=== PATIENT | female | born 1945 | race Caucasian/White ===

== ENCOUNTER 2016-07-31 12:47 | Inpatient (IN) | payer MEDICARE, OTHER ==
--- NOTE | 2016-07-31 12:58 | ERPHSYRPT ---
- History of Present Illness Time Seen by Provider: 07/31/16 12:55 Source: EMS Exam Limitations: clinical condition Physician History: 71-year-old white female brought by medics with complaint of seizing for approximately one half hour prior to the arrival of the medics patient was given Versed 2 mg by the medics she arrives she is able to open her eyes she will open her mouth she will move her right hand and squeeze, she does not manager content or move her left hand. Her speech is limited to groaning. Past medical history Small cell lung cancer, feeding tube, depression Past surgical history includes vascular surgery, tubal ligation, varicose vein stripping, cataracts, bilateral foot surgery, feeding tube Timing/Duration: today Severity: moderate Modifying Factors: Improves With: nothing Associated Symptoms: No nausea, No vomiting, No abdominal pain, No shortness of breath, No heartburn, No cough, No chest pain, No fever, No headaches, No loss of appetite, No seizure, No other Allergies/Adverse Reactions: No Known Drug Allergies Allergy (Verified 07/31/16 13:08) Home Medications: Unobtainable [Unobtainable] 07/31/16 [History] Hx Tetanus, Diphtheria Vaccination/Date Given: No Hx Influenza Vaccination/Date Given: No Hx Pneumococcal Vaccination/Date Given: No - Review of Systems Constitutional: No Fever, No Chills Eyes: No Symptoms Ears, Nose, & Throat: No Symptoms Respiratory: No Cough, No Dyspnea Cardiac: No Chest Pain, No Edema, No Syncope Abdominal/Gastrointestinal: No Abdominal Pain, No Nausea, No Vomiting, No Diarrhea Musculoskeletal: No Back Pain, No Neck Pain Skin: No Rash Neurological: Seizure (seizure lasting 1/2 hour at home) Psychological: No Symptoms Endocrine: No Symptoms - Past Medical History Pertinent Past Medical History: Yes Neurological History: No Pertinent History ENT History: Cataracts Cardiac History: No Pertinent History Respiratory History: Lung Cancer Endocrine Medical History: No Pertinent History Musculoskeletal History: Other GI Medical History: No Pertinent History History: No Pertinent History Psycho-Social History: No Pertinent History Female Reproductive Disorders: No Pertinent History Other Medical History: leg tremors. varicose veins. G TUBE PLACED IN 07/2015 DUE TO DECREASED INTAKE - Past Surgical History Past Surgical History: Yes Neuro Surgical History: No Pertinent History Cardiac: Vascular Surgery Respiratory: Other Gastrointestinal: No Pertinent History, Other Genitourinary: No Pertinent History Musculoskeletal: No Pertinent History Female Surgical History: Tubal Ligation Other Surgical History: several varicose vein lasered ,. cvl port-PORT REMOVAL. cataract x2. Bronchoscopy to dx lung cancer. bilateral foot surgery ( big toes). FEEDING TUBE PLACEMENT 07/26 - Social History Smoking Status: Current some day smoker How long have you smoked: 50 Exposure to second hand smoke: No Drug Use: none Patient Lives Alone: No - Nursing Vital Signs Nursing Vital Signs: Initial Vital Signs Temperature 97.0 F Temperature Source Oral Pulse Rate 107 Respiratory Rate 16 Blood Pressure [Right Arm] 123/74 - Physical Exam General Appearance: other (elderly appearing white female she is alert she will move her eyes and her mouth to command squeezes with her right hand) Eye Exam: PERRL/EOMI, eyes nml inspection Ears, Nose, Throat Exam: normal ENT inspection, TMs normal, pharynx normal, moist mucous membranes Neck Exam: normal inspection, non-tender, supple, full range of motion Respiratory Exam: rhonchi (bilateral rhonchi) Cardiovascular Exam: regular rate/rhythm, normal heart sounds, normal peripheral pulses Gastrointestinal/Abdomen Exam: soft, normal bowel sounds, No tenderness, No mass Back Exam: normal inspection, normal range of motion, No CVA tenderness, No vertebral tenderness Extremity Exam: other (patient has full range of motion right hand does not move left hand) Neurologic Exam: alert, cooperative, other (patient is alert and communicates with incomprehensible sounds. Opens mouth to command. 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 left hand) Skin Exam: normal color, warm, dry, No rash SpO2 Interpretation: normal - Course Nursing assessment & vital signs reviewed: Yes EKG Interpreted by Me: RATE (110), Sinus Rhythm, Sinus Tach, NORMAL AXIS, Other (EKG, sinus tachycardia, 110 bpm, normal axis, no acute ST or T wave changes ) Rhythm Strip: Rate Ordered Tests: Active Orders 24 hr Category Date Time Status Accucheck STAT Care 07/31/16 12:50 Active EKG-ER Only STAT Care 07/31/16 12:50 Active IV Insertion STAT Care 07/31/16 12:50 Active IV Insertion-2nd Peripheral STAT Care 07/31/16 13:21 Active Pulse Oximetry (ED) STAT Care 07/31/16 12:50 Active cath [Cath for Specimen-Straight] STAT Care 07/31/16 13:24 Active CHEST 1 VIEW (PORTABLE) Stat Exams 07/31/16 12:50 Completed HEAD WITHOUT CONTRAST [CT] Stat Exams 07/31/16 12:50 Completed BLOOD CULTURE Stat Lab 07/31/16 12:30 Received CBC W DIFF Stat Lab 07/31/16 12:30 Completed CMP Stat Lab 07/31/16 12:30 Completed CULTURE,URINE Stat Lab 07/31/16 13:23 Received PROTIME WITH INR Stat Lab 07/31/16 12:30 Completed PTT Stat Lab 07/31/16 12:30 Completed TROPONIN Q3H Lab 07/31/16 13:00 Completed TROPONIN Q3H Lab 07/31/16 16:00 Ordered TROPONIN Q3H Lab 07/31/16 19:00 Ordered TROPONIN Q3H Lab 07/31/16 22:00 Ordered TROPONIN Q3H Lab 08/01/16 01:00 Ordered UA W/ MICROSCOPIC Stat Lab 07/31/16 13:00 Completed VENOUS BLOOD GAS Urgent Lab 07/31/16 12:30 Completed Respiratory Nebulizer STAT RT 07/31/16 13:27 Completed Medication Summary Generic Name Dose Route Start Last Admin Trade Name Freq PRN Reason Stop Dose Admin Sodium Chloride 1,000 mls @ 50 mls/hr 07/31/16 13:00 07/31/16 13:17 Sodium Chloride 0.9% 1000 Ml IV 08/30/16 12:59 50 mls/hr .Q20H MIKE Administration Ceftriaxone Sodium/Dextrose 1 g in 50 mls @ 100 mls/hr 07/31/16 14:12 14:19 Rocephin 1 Gm-D5w 50 Ml Bag IV 07/31/16 14:41 100 mls/hr STAT STA Administration Discontinued Medications Generic Name Dose Route Start Last Admin Trade Name Freq PRN Reason Stop Dose Admin Albuterol/Ipratropium 3 ml 07/31/16 13:27 07/31/16 13:35 Duoneb 0.5-3 Mg/3 Ml Neb IH 07/31/16 13:28 3 ml STAT ONE Administration Albuterol/Ipratropium Confirm 07/31/16 13:29 Duoneb 0.5-3 Mg/3 Ml Neb Administered 07/31/16 13:30 Dose 3 ml IH .STK-MED ONE Ceftriaxone Sodium/Dextrose Confirm 07/31/16 14:16 Rocephin 1 Gm-D5w 50 Ml Bag Administered 07/31/16 14:17 Dose 1 g in 50 mls @ ud IV .STK-MED ONE Lab/Rad Data: Laboratory Result Diagrams 07/31/16 12:30 07/31/16 12:30 Laboratory Results 07/31/16 07/31/16 07/31/16 Range/Units 13:00 13:00 12:30 WBC (4.0-10.5) K/mm3 RBC (4.1-5.4) M/mm3 Hgb (12.0-16.0) gm/dl Hct (35-47) % MCV (78-100) fl MCH (26-32) pg MCHC (32-36) g/dl RDW (11.5-14.0) % Plt Count (150-450) K/mm3 MPV (6-9.5) fl Gran % (36.0-66.0) % Lymphocytes % (24.0-44.0) % Monocytes % (0.0-12.0) % Eosinophils % (0.00-5.0) % Basophils % (0.0-0.4) % Basophils # (0-0.4) INR 1.16 (0.8-3.0) APTT 31.3 (25.3-37.0) SECONDS VBG pH (7.32-7.42) VBG pCO2 at Pat Temp (42-55) mm/Hg VBG pO2 at Pat Temp (25-40) mm/Hg VBG HCO3 (22-28) meq/L VBG O2 Sat ([place]) (95-100) VBG Base Excess (-2.0-2.0) VBG Hemoglobin VBG Carboxyhemoglobin (0.0-6.9) % T HGB POC Potassium (3.5-5.1) Sodium (136-145) mEq/L Potassium (3.5-5.1) mEq/L Chloride (98-107) mEq/L Carbon Dioxide (21-32) mEq/L Anion Gap (5-15) MEQ/L BUN (9-20) mg/dL Creatinine (0.55-1.30) mg/dl Estimated GFR ML/MIN Glucose (70-110) MG/DL Calcium (8.5-10.1) mg/dL Total Bilirubin (0.2-1.0) mg/dL AST (15-37) U/L ALT (12-78) U/L Alkaline Phosphatase (46-116) U/L Troponin I < 0.017 (0.000-0.056) ng/ml Serum Total Protein (6.4-8.2) gm/dL Albumin (3.4-5.0) g/dL Ur Collection Type CATH Urine Color YELLOW (YELLOW) Urine Appearance SLIGHTLY CLOUDY (CLEAR) Urine pH 5.0 (5-6) Ur Specific [place] 1.020 (1.005-1.025) Urine Protein TRACE (Negative) Urine Ketones NEGATIVE (NEGATIVE) Urine Blood NEGATIVE (0-5) Misbah/ul Urine Nitrite NEGATIVE (NEGATIVE) Urine Bilirubin NEGATIVE (NEGATIVE) Urine Urobilinogen NORMAL (0-1) mg/dL Ur Leukocyte Esterase NEGATIVE (NEGATIVE) Urine Microscopic WBC 0-2 (0-5) /HPF Ur Epithelial Cells RARE (FEW) /HPF Amorphous Crystals MANY (NEGATIVE) /HPF Urine Bacteria FEW (NEGATIVE) /HPF Urine Glucose NEGATIVE (NEGATIVE) mg/dL Specimen Received 07/31/16 1300 07/31/16 07/31/16 07/31/16 Range/Units 12:30 12:30 12:30 WBC 12.0 H (4.0-10.5) K/mm3 RBC 3.50 L (4.1-5.4) M/mm3 Hgb 10.7 L (12.0-16.0) gm/dl Hct 34.3 L (35-47) % MCV 98.0 (78-100) fl MCH 30.5 (26-32) pg MCHC 31.2 L (32-36) g/dl RDW 14.5 H (11.5-14.0) % Plt Count 485 H (150-450) K/mm3 MPV 11.1 H (6-9.5) fl Gran % 76.6 H (36.0-66.0) % Lymphocytes % 18.1 L (24.0-44.0) % Monocytes % 4.2 (0.0-12.0) % Eosinophils % 0.9 (0.00-5.0) % Basophils % 0.2 (0.0-0.4) % Basophils # 0.02 (0-0.4) INR (0.8-3.0) APTT (25.3-37.0) SECONDS VBG pH 7.22 L* (7.32-7.42) VBG pCO2 at Pat Temp 41 L (42-55) mm/Hg VBG pO2 at Pat Temp 119 H (25-40) mm/Hg VBG HCO3 16.8 L* (22-28) meq/L VBG O2 Sat ([place]) 98.7 (95-100) VBG Base Excess -10.3 L (-2.0-2.0) VBG Hemoglobin 11.0 VBG Carboxyhemoglobin 3.8 (0.0-6.9) % T HGB POC Potassium 4.2 (3.5-5.1) Sodium 139 (136-145) mEq/L Potassium 4.2 (3.5-5.1) mEq/L Chloride 100 (98-107) mEq/L Carbon Dioxide 17.5 L (21-32) mEq/L Anion Gap 26.1 H (5-15) MEQ/L BUN 37 H (9-20) mg/dL Creatinine 1.79 H (0.55-1.30) mg/dl Estimated GFR 30 ML/MIN Glucose 302 H (70-110) MG/DL Calcium 10.3 H (8.5-10.1) mg/dL Total Bilirubin 0.30 (0.2-1.0) mg/dL AST 28 (15-37) U/L ALT 11 L (12-78) U/L Alkaline Phosphatase 220 H (46-116) U/L Troponin I (0.000-0.056) ng/ml Serum Total Protein 8.5 H (6.4-8.2) gm/dL Albumin 3.7 (3.4-5.0) g/dL Ur Collection Type Urine Color (YELLOW) Urine Appearance (CLEAR) Urine pH (5-6) Ur Specific [place] (1.005-1.025) Urine Protein (Negative) Urine Ketones (NEGATIVE) Urine Blood (0-5) Misb[place]/ul Urine Nitrite (NEGATIVE) Urine Bilirubin (NEGATIVE) Urine Urobilinogen (0-1) mg/dL Ur Leukocyte Esterase (NEGATIVE) Urine Microscopic WBC (0-5) /HPF Ur Epithelial Cells (FEW) /HPF Amorphous Crystals (NEGATIVE) /HPF Urine Bacteria (NEGATIVE) /HPF Urine Glucose (NEGATIVE) mg/dL Specimen Received - Progress Progress: improved Progress Note: 07/31/16 13:38 Patient with a large right-sided subdural hematoma chronic with acute features with midline shift according to radiologist. Patient also with right upper lobe mass versus infiltrate. I have informed the patient's of this I have asked him what type of CODE STATUS he would like on this patient whether he wants her transferred. He states he wants to wait on the daughter before he makes a decision 07/31/16 14:07 I've discussed the patient with the patient's daughter. Patient apparently has a living well she is a DO NOT RESUSCITATE other than her feeding tube. Patient wants to continue DO NOT RESUSCITATE orders and comfort measures only. Patient does not want patient transferred for further neurologic care 07/31/16 14:13 Patient's case is discussed with Dr. Maxwell Will make patient no CODE STATUS. Will place patient on IV Rocephin. Will provide normal saline at 100 mL per hour. Oxygen to keep saturation greater than 90%. - Departure Time of Disposition: 14:35 Departure Disposition: Home Clinical Impression: Subdural hematoma, Seizure, Left hand weakness Small cell lung cancer Qualifiers: Laterality: unspecified laterality Qualified Code(s): C34.90 - Malignant neoplasm of unspecified part of unspecified bronchus or lung Condition: Serious Critical Care Time: No Referrals: PRERNA MAXWELL MD [Primary Care Provider] -
[2016-07-31] MEDS ORDERED: Sodium Chloride 0.9% 1000 ML 1,000 ML IV SCH (13:00)
[2016-07-31 13:06] LABS: VBG BASE EXCESS -10.3 (-2.0-2.0); VBG CARBOXYHEMOGLOBIN 3.8 % T HGB (0.0-6.9); VBG HCO3- 16.8 meq/L (22-28); VBG O2 SATURATION 98.7 (95-100); VBG POTASSIUM 4.2 (3.5-5.1); VBG pH 7.22 (7.32-7.42)
[2016-07-31 13:08] LABS: BASOPHIL % 0.2 % (0.0-0.4); Eosinophil % 0.9 % (0.00-5.0); Granulocytes % 76.6 % (36.0-66.0); Lymphocytes % 18.1 % (24.0-44.0); Mean Platelet Volume 11.1 fl (6-9.5); Monocytes % 4.2 % (0.0-12.0); Platelet Count 485 K/mm3 (150-450); Red Cell Distribution Width 14.5 % (11.5-14.0)
[2016-07-31 13:10] LABS: Mean Corpuscular Hemoglobin 30.5 pg (26-32)
[2016-07-31 13:15] LABS: INR 1.16 (0.8-3.0); PROTIME 13.1 SECONDS (9.95-12.35)
[2016-07-31 13:17] LABS: PTT 31.3 SECONDS (25.3-37.0)
[2016-07-31] MEDS ORDERED: DUONEB 0.5-3 MG/3 ml Neb IH ONE ×2 (13:27→13:29)
[2016-07-31 13:37] LABS: ALBUMIN 3.7 g/dL (3.4-5.0); ANION GAP 26.1 MEQ/L (5-15); BILIRUBIN,TOTAL 0.3 mg/dL (0.2-1.0); Carbon Dioxide 17.5 mEq/L (21-32); Potassium 4.2 mEq/L (3.5-5.1); Total Protein 8.5 gm/dL (6.4-8.2)
[2016-07-31 13:43] LABS: Bilirubin NEGATIVE (NEGATIVE); Blood NEGATIVE Ery/ul (0-5); COMPLETE URINE MICROSCOPIC? YES; Collection Type CATH; Epithelial Cells RARE /HPF (FEW); Glucose NEGATIVE (NEGATIVE); Leukocyte Esterase NEGATIVE (NEGATIVE); WBC 0-2 /HPF (0-5)
[2016-07-31 13:44] LABS: ADD URINE CULTURE? NO (NO); Bacteria FEW /HPF (NEGATIVE)
--- NOTE | 2016-07-31 13:57 | XRAY ---
Exam: CT of the head without IV contrast from 07/31/2016. CTDI: 68.98 Comparison: None. Indication: Seizure, left-sided weakness. Technique: Non-IV contrast axial images were obtained through the brain. Reconstructed coronal and sagittal images were created and reviewed. Findings: There appears to be a right sided subdural hematoma which measures about 8 mm in maximum width. Some of this hematoma has a chronic appearance with low-attenuation, but there also appears to be some high attenuation within it at the anterior right frontal and anterior right parietal area suggesting an acute to subacute bleed component. There is some effacement of the cortical sulci within the right cerebral hemisphere indicating mass effect. There is some downward displacement of the right frontal horn on the coronal images indicating mass effect. There is also a suggestion of slight shift of the midline from right to left. There is no evidence of uncal herniation. The ventricles are mildly prominent. I see no other evidence of acute intracranial bleed. There is some mild focal encephalomalacia within the high posterior right parietal convexity which is probably chronic and due to remote ischemia. Focal edema is not excluded. No other focal parenchymal lesion is seen. The fourth ventricle is mildly increased in size. The posterior fossa appears unremarkable. There is some prominence of the CSF spaces within the left cerebral hemisphere and basilar cisterns suggesting atrophy. The bones reveal no evidence of skull fracture. The paranasal sinuses are clear. The right mastoid air cells are well aerated. There is some clouding of some of the mastoid air cells on the left which may be due to mucosal thickening or chronic mastoid disease. Impression: 1. There is a mild to moderate sized the right-sided subdural hematoma of varying age. Some of this appears to be old, but there is a high attenuation component anteriorly within the right frontal and anterior parietal area suggesting some acute or subacute blood within it as well. Mass effect within the right cerebral hemisphere is seen, as discussed above. No descending uncal herniation is seen. 2. There is some mild focal encephalomalacia within the high posterior right parietal region which may reflect a remote ischemic event. Focal edema is not completely excluded. 3. Some atrophic changes are seen within the left cerebral hemisphere and posterior fossa. No other acute process seen.
--- NOTE | 2016-07-31 13:58 | XRAY ---
Exam: AP chest film from 1300 hrs. on 07/31/2016 Comparison AP portable chest film from 12/29/2015. Indication: Seizure, left-sided weakness. Findings: The heart size is normal. I again see a large right perihilar mass-like density worrisome for neoplasm. Concomitant infiltrate cannot be excluded. There is marked right apical pleural thickening/pleural reaction representing no change as well. Some linear scarring is seen at the right lung base. The right hemithorax reveals decreased volume as compared to the left lung. The left lung is clear. Mild mid thoracic dextroscoliosis is seen. Impression: 1. I again see a large right perihilar soft tissue mass which is essentially unchanged from 12/29/2015. Some concomitant infiltrate in this projection cannot be excluded. Mild relative volume loss within the right lung as compared to the left lung is again seen. 2. The left lung is well expanded and appears clear.
[2016-07-31] MEDS ORDERED: ROCEPHIN 1 Gm-D5w 50 ml Bag** 1 G/50 ML IVPB IV STA (14:12)
[2016-07-31] MEDS ORDERED: ROCEPHIN 1 Gm-D5w 50 ml Bag** 1 G/50 ML IVPB IV ONE (14:16)
[2016-07-31] MEDS ORDERED: Ativan 2 MG/1 ML VIAL IV PRN (15:17)
[2016-07-31] MEDS ORDERED: NovoLOG Insulin SQ PRN (15:20)
[2016-07-31] MEDS ORDERED: DUONEB 0.5-3 MG/3 ml Neb IH PRN (15:20)
[2016-07-31] MEDS ORDERED: Keppra 500 MG/5 ML*** 500 MG in D5w 100ML Mini Bag 100 ML 100 ML IV ONE (16:33)
--- NOTE | 2016-07-31 16:41 | PCM.HP ---
History of Present Illness - Chief Complaint Chief Complaint: SOB, SEIZURE ACTIVITY, SUBDURAL HEMATOMA History of Present Illness: is a 71 year old female who presented to the ER with acute onset of unresponsiveness and generalized seizures. Patient has advanced lung cancer, is not doing treatments currently. She has fallen several times in the last 2 weeks. She has a PEG tube in place for feeding but wants it removed, she hasn't had tube feedings for the last 3-4 days so has had very little po intake. - Review of Systems Constitutional: No Fever, No Chills Respiratory: No Cough, No Short Of Breath Cardiac: No Chest Pain, No Edema, No Syncope Neurological: Focal Weakness, Seizure All Other Systems: Reviewed and Negative Medications & Allergies Home Medications: Home Medication List Clonazepam [Klonopin] 1 mg PO HS 07/31/16 [History Confirmed 07/31/16] Allergies/Adverse Reactions: Allergies Allergy/AdvReac Type Severity Reaction Status Date / Time No Known Drug Allergies Allergy Verified 07/31/16 13:08 - Past Medical History Past Medical History: Yes Neurological History: No Pertinent History ENT History: Cataracts Cardiac History: No Pertinent History Respiratory History: Lung Cancer Endocrine Medical History: No Pertinent History Musculoskelatal History: Other GI Medical History: No Pertinent History History: No Pertinent History Pyscho-Social History: No Pertinent History Reproductive Disorders: No Pertinent History Comment: leg tremors. varicose veins. G TUBE PLACED IN 07/2015 DUE TO DECREASED INTAKE - Female History Are you now?: No - Past Surgical History Past Surgical History: Yes Neuro Surgical History: No Pertinent History Cardiac History: Vascular Surgery Respiratory Surgery: Other GI Surgical History: No Pertinent History, Other Genitourinary Surgical Hx: No Pertinent History Musculskeletal Surgical Hx: No Pertinent History Female Surgical History: Tubal Ligation Other Surgical History: several varicose vein lasered ,. cvl port-PORT REMOVAL. cataract x2. Bronchoscopy to dx lung cancer. bilateral foot surgery ( big toes). 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 BLE 2+ knee jerk), motor weakness, No disoriented, No confusion, No agitation, No facial droop, No slurred speech Eye Exam: PERRL/EOMI, eyes nml inspection Neck Exam: normal inspection, non-tender, supple, full range of motion Respiratory Exam: normal breath sounds, lungs clear, No respiratory distress Cardiovascular Exam: regular rate/rhythm, normal heart sounds, normal peripheral pulses Gastrointestinal/Abdomen Exam: soft, normal bowel sounds, No tenderness, No mass Extremity Exam: normal inspection, normal range of motion, pelvis stable Skin Exam: normal color, warm, dry, No rash Results - Radiology Impressions Radiology Exams & Impressions: Radiology Procedures Category Date Time Status CHEST 1 VIEW (PORTABLE) Routine Exams 08/01/16 07:00 Ordered Assessment/Plan (1) Subdural hematoma Current Visit: Yes Status: Acute Assessment & Plan: patient is stable at this time, will monitor. she does not want to have CPR or mechanical ventilation etc if her conditions worsens. she declines transfer to tertiary [facility] center, states she would not agree to any surgery intervention etc. the patient, her and daughter Apple all agree to current course of treatment with no aggressive measures. Code(s): I62.00 - NONTRAUMATIC SUBDURAL HEMORRHAGE, UNSPECIFIED (2) Aspiration into lower respiratory tract Current Visit: Yes Status: Acute Code(s): T17.800A - UNSP FOREIGN BODY IN OTH PRT RESP TRACT CAUSING ASPHYX, INIT (3) Small cell lung cancer Current Visit: Yes Status: Chronic Qualifiers: Laterality: unspecified laterality Qualified Code(s): C34.90 - Malignant neoplasm of unspecified part of unspecified bronchus or lung Code(s): C34.90 - MALIGNANT NEOPLASM OF UNSP PART OF UNSP BRONCHUS OR LUNG (4) Seizure Current Visit: Yes Status: Acute Assessment & Plan: will load with IV keppra and start po keppray, will get a swallow evaluation Code(s): R56.9 - UNSPECIFIED CONVULSIONS
[2016-07-31] MEDS: Zosyn 3.375GM/100 Ml D5W 3.375 GM/100 ML IVPB IV SCH (17:50)
[2016-07-31] MEDS ORDERED: NON-FORMULARY ITEM (Clonazepam [Klonopin] 1 MG) PO SCH (22:00)
[2016-07-31] MEDS: Klonopin 0.5 MG PO SCH (22:09)
[2016-08-01] MEDS: Sodium Chloride 0.9% 1000 ML 1,000 ML IV SCH ×2 (02:33→13:40)
[2016-08-01] MEDS: Zosyn 3.375GM/100 Ml D5W 3.375 GM/100 ML IVPB IV SCH ×3 (05:21→21:01)
[2016-08-01 05:38] LABS: BASOPHIL % 0.1 % (0.0-0.4); Eosinophil % 1.5 % (0.00-5.0); Granulocytes % 87.8 % (36.0-66.0); Lymphocytes % 5.6 % (24.0-44.0); Mean Cell Volume 96.9 fl (78-100); Mean Platelet Volume 10.3 fl (6-9.5); Platelet Count 230 K/mm3 (150-450); Red Blood Count 2.56 M/mm3 (4.1-5.4); Red Cell Distribution Width 14.2 % (11.5-14.0); White Blood Count 7.2 K/mm3 (4.0-10.5)
[2016-08-01 06:01] LABS: Mean Corpuscular Hemoglobin 30.4 pg (26-32)
[2016-08-01 06:16] LABS: ALBUMIN 2.8 g/dL (3.4-5.0); ANION GAP 14.9 MEQ/L (5-15); BILIRUBIN,TOTAL 0.2 mg/dL (0.2-1.0); Carbon Dioxide 25.7 mEq/L (21-32); Potassium 3.4 mEq/L (3.5-5.1); Total Protein 6.4 gm/dL (6.4-8.2)
--- NOTE | 2016-08-01 08:02 | PCM.NOTE ---
Date and Time: 08/01/16 0800 Subjective Assessment: patient is stable today, doing well at this time. no seizures overnight Objective Exam General Appearance: no apparent distress, alert Neurologic Exam: other (left arm traffic incident management manager strength 3/5, pronator drift decreased) Respiratory Exam: normal breath sounds, lungs clear, No respiratory distress Cardiovascular Exam: regular rate/rhythm, normal heart sounds Gastrointestinal/Abdomen Exam: soft, No tenderness, No mass OBJECTIVE DATA Vital Signs: Vital Signs - 24 hr Temp Pulse Resp BP Pulse Ox 08/01/16 07:30 98.4 F 100 H 18 112/57 99 08/01/16 04:00 98.1 F 102 H 16 107/55 98 07/31/16 23:45 98.9 F 102 H 18 95/52 96 07/31/16 20:00 97.8 F 109 H 16 99/55 99 07/31/16 19:16 94 L 07/31/16 17:34 96 07/31/16 17:17 96 07/31/16 15:38 98.1 F 102 H 17 147/78 100 07/31/16 14:52 104 H 18 113/65 07/31/16 14:23 107 H 16 123/74 100 07/31/16 14:12 112 H 20 96 07/31/16 13:22 97 07/31/16 12:49 97.0 F 115 H 14 128/72 94 L Pain Assessment - Last Documented Pain Intensity 0 Pain Scale Used 0-10 Pain Scale Intake and Output: Intake & Output 07/29/16 07/30/16 07/31/16 08/01/16 11:59 11:59 11:59 11:59 Intake Total 1788 Output Total 300 Balance 1488 Weight 40.993 kg Lab Results: Accuchecks Accucheck Value: 111 Lab Results-Last 24 Hours 07/31/16 07/31/16 07/31/16 Range/Units 16:07 19:28 22:30 WBC (4.0-10.5) K/mm3 RBC (4.1-5.4) M/mm3 Hgb (12.0-16.0) gm/dl Hct (35-47) % MCV (78-100) fl MCH (26-32) pg MCHC (32-36) g/dl RDW (11.5-14.0) % Plt Count (150-450) K/mm3 MPV (6-9.5) fl Gran % (36.0-66.0) % Lymphocytes % (24.0-44.0) % Monocytes % (0.0-12.0) % Eosinophils % (0.00-5.0) % Basophils % (0.0-0.4) % Basophils # (0-0.4) Sodium (136-145) mEq/L Potassium (3.5-5.1) mEq/L Chloride (98-107) mEq/L Carbon Dioxide (21-32) mEq/L Anion Gap (5-15) MEQ/L BUN (9-20) mg/dL Creatinine (0.55-1.30) mg/dl Estimated GFR ML/MIN Glucose (70-110) MG/DL Calcium (8.5-10.1) mg/dL Total Bilirubin (0.2-1.0) mg/dL AST (15-37) U/L ALT (12-78) U/L Alkaline Phosphatase (46-116) U/L Troponin I < 0.017 0.025 0.026 (0.000-0.056) ng/ml Serum Total Protein (6.4-8.2) gm/dL Albumin (3.4-5.0) g/dL 08/01/16 08/01/16 08/01/16 Range/Units 01:15 05:18 05:18 WBC 7.2 (4.0-10.5) K/mm3 RBC 2.56 L (4.1-5.4) M/mm3 Hgb 7.8 L (12.0-16.0) gm/dl Hct 24.8 L (35-47) % MCV 96.9 (78-100) fl MCH 30.4 (26-32) pg MCHC 31.5 L (32-36) g/dl RDW 14.2 H (11.5-14.0) % Plt Count 230 (150-450) K/mm3 MPV 10.3 H (6-9.5) fl Gran % 87.8 H (36.0-66.0) % Lymphocytes % 5.6 L (24.0-44.0) % Monocytes % 5.0 (0.0-12.0) % Eosinophils % 1.5 (0.00-5.0) % Basophils % 0.1 (0.0-0.4) % Basophils # 0.01 (0-0.4) Sodium 143 (136-145) mEq/L Potassium 3.4 L (3.5-5.1) mEq/L Chloride 106 (98-107) mEq/L Carbon Dioxide 25.7 (21-32) mEq/L Anion Gap 14.9 (5-15) MEQ/L BUN 28 H (9-20) mg/dL Creatinine 1.14 (0.55-1.30) mg/dl Estimated GFR 50 ML/MIN Glucose 102 (70-110) MG/DL Calcium 8.8 (8.5-10.1) mg/dL Total Bilirubin 0.20 (0.2-1.0) mg/dL AST 16 (15-37) U/L ALT 8 L (12-78) U/L Alkaline Phosphatase 161 H (46-116) U/L Troponin I < 0.017 (0.000-0.056) ng/ml Serum Total Protein 6.4 (6.4-8.2) gm/dL Albumin 2.8 L (3.4-5.0) g/dL Radiology Exams: Radiology Procedures Category Date Time Status CHEST 1 VIEW (PORTABLE) Routine Exams 08/01/16 07:00 Taken Assessment/Plan (1) Subdural hematoma Current Visit: Yes Status: Acute Assessment & Plan: stable clinically, discussed falls and inability to care for herself Code(s): I62.00 - NONTRAUMATIC SUBDURAL HEMORRHAGE, UNSPECIFIED (2) Aspiration into lower respiratory tract Current Visit: Yes Status: Acute Assessment & Plan: repeat chest xray pending from this am Code(s): T17.800A - UNSP FOREIGN BODY IN OTH PRT RESP TRACT CAUSING ASPHYX, INIT (3) Small cell lung cancer Current Visit: Yes Status: Chronic Qualifiers: Laterality: unspecified laterality Qualified Code(s): C34.90 - Malignant neoplasm of unspecified part of unspecified bronchus or lung Code(s): C34.90 - MALIGNANT NEOPLASM OF UNSP PART OF UNSP BRONCHUS OR LUNG (4) Seizure Current Visit: Yes Status: Acute Code(s): R56.9 - UNSPECIFIED CONVULSIONS
--- NOTE | 2016-08-01 08:32 | XRAY ---
Exam: AP 50 semi-upright portable chest film from 0650 hours on 10/01/2016. Comparison: AP portable chest films from 07/31/2016, 12/29/2015, and 11/09/2015. Indication: Follow-up lung mass, rule out aspiration pneumonia. Findings: The transverse heart size appears within normal limits for this AP portable technique. The heart size is unchanged. The left hilum appears unremarkable. The left lung is well-expanded and reveals no infiltrates. The left costophrenic angle appears unremarkable. The right lung demonstrates mild volume loss representing no change. I again see some chronic thoracic tracheal deviation toward the right. There is a large right perihilar mass occupying the right midlung field which measures about 6.3 cm in width and 6.8 cm in height. This is not significantly changed. I again see some prominent right apical pleural density which is believed to most likely be due to scarring and pleural thickening. Only a small portion of the right upper lobe remains aerated. The right lung base is clear except for some minimal markings seen adjacent to the right hemidiaphragmatic surface, likely due to scarring or chronic linear atelectasis. No significant right pleural effusion is seen. No pneumothorax is seen on the right. There is mild mid thoracic dextroscoliosis representing no change. No acute osseous abnormality is seen. Impression: 1. I see no definite new infiltrates to suggest aspiration pneumonia. 2. However, the right lung remains very abnormal with a large right perihilar and midlung field mass density, contracted right lung, and deviation of the thoracic trachea toward the right. Chronic marked right apical pleural thickening/scarring and mild linear scarring or atelectasis near the right hemidiaphragm appear about the same. 3. The left lung is well-expanded and appears clear.
[2016-08-01] MEDS: KEPPRA 500 MG PO SCH ×2 (09:10→21:01)
[2016-08-01] MEDS: ROCEPHIN 1 Gm-D5w 50 ml Bag** 1 G/50 ML IVPB IV SCH (09:12)
[2016-08-01] MEDS: Klonopin 0.5 MG PO SCH (22:03)
[2016-08-02] MEDS: Sodium Chloride 0.9% 1000 ML 1,000 ML IV SCH ×2 (00:50→12:39)
[2016-08-02] MEDS ORDERED: TYLENOL 325 MG PO PRN (04:03)
[2016-08-02] MEDS: Zosyn 3.375GM/100 Ml D5W 3.375 GM/100 ML IVPB IV SCH ×3 (05:10→21:56)
--- NOTE | 2016-08-02 08:21 | PCM.NOTE ---
Date and Time: 08/02/16 0820 Subjective Assessment: doing well at this time, no seizures. still not eating much Objective Exam General Appearance: no apparent distress, alert Respiratory Exam: normal breath sounds, lungs clear, No respiratory distress Cardiovascular Exam: regular rate/rhythm, normal heart sounds Gastrointestinal/Abdomen Exam: soft, No tenderness, No mass OBJECTIVE DATA Vital Signs: Vital Signs - 24 hr Temp Pulse Resp BP Pulse Ox 08/02/16 04:00 98.2 F 99 H 17 124/79 99 08/02/16 00:00 98.3 F 104 H 18 109/61 98 08/01/16 20:30 98.5 F 98 H 18 128/60 98 08/01/16 15:51 98.2 F 103 H 20 113/65 92 L 08/01/16 11:27 98.4 F 100 H 18 116/63 100 Pain Assessment - Last Documented Pain Intensity 3 Pain Scale Used 0-10 Pain Scale Intake and Output: Intake & Output 07/30/16 07/31/16 08/01/16 08/02/16 11:59 11:59 11:59 11:59 Intake Total 8 3163 Output Total 600 350 Balance 1428 2813 Weight 40.993 kg 40.993 kg Radiology Exams: Radiology Procedures Category Date Time Status CHEST 1 VIEW (PORTABLE) Routine Exams 08/01/16 07:00 Completed Multi-Disciplinary Progress Notes: Multi-Disciplinary Progress Notes 08/01/16 13:00 (created 08/01/16 16:23) Case Management Note by Chelsea Zavala SPOKE WITH BRETT, PT'S DAUGHTER, IN REGARDS TO DISCHARGE PLANNING, AND NEEDS FOR DISCHARGE. BRETT REPORTS THAT THEY HAVE DISCUSSED AND THE PLAN WILL BE FOR PT TO RETURN TO [facility] FOR REHAB STAY PRIOR TO RETURN HOME. CALL TO [facility] TO REPORT REFERRAL, SPOKE WITH NÉSTOR. NÉSTOR REPORTS THAT THEY WILL EVAL TOMORROW, 08/02/16. Initialized on 08/01/16 16:23 - END OF NOTE 08/01/16 08:49 Respiratory Note by Leatha Doan PT NOT USING O2. D/CD Initialized on 08/01/16 08:49 - END OF NOTE Assessment/Plan (1) Subdural hematoma Current Visit: Yes Status: Acute Assessment & Plan: stable currently, continue keppra for seizure prevention Code(s): I62.00 - NONTRAUMATIC SUBDURAL HEMORRHAGE, UNSPECIFIED (2) Aspiration into lower respiratory tract Current Visit: Yes Status: Acute Assessment & Plan: no aspiration on chest xray Code(s): T17.800A - UNSP FOREIGN BODY IN OTH PRT RESP TRACT CAUSING ASPHYX, INIT (3) Small cell lung cancer Current Visit: Yes Status: Chronic Qualifiers: Laterality: unspecified laterality Qualified Code(s): C34.90 - Malignant neoplasm of unspecified part of unspecified bronchus or lung Code(s): C34.90 - MALIGNANT NEOPLASM OF UNSP PART OF UNSP BRONCHUS OR LUNG (4) Seizure Current Visit: Yes Status: Acute Code(s): R56.9 - UNSPECIFIED CONVULSIONS
[2016-08-02] MEDS: KEPPRA 500 MG PO SCH ×2 (08:58→21:56)
[2016-08-02] MEDS: ROCEPHIN 1 Gm-D5w 50 ml Bag** 1 G/50 ML IVPB IV SCH (08:59)
[2016-08-02] MEDS: Klonopin 0.5 MG PO SCH (22:08)
[2016-08-03] MEDS: Sodium Chloride 0.9% 1000 ML 1,000 ML IV SCH (00:08)
[2016-08-03] MEDS: Zosyn 3.375GM/100 Ml D5W 3.375 GM/100 ML IVPB IV SCH (05:18)
[2016-08-03 05:28] LABS: Mean Cell Volume 97.7 fl (78-100); Mean Platelet Volume 10.5 fl (6-9.5); Platelet Count 176 K/mm3 (150-450); Red Blood Count 2.57 M/mm3 (4.1-5.4); Red Cell Distribution Width 14.3 % (11.5-14.0); White Blood Count 5.9 K/mm3 (4.0-10.5)
[2016-08-03 05:40] LABS: Mean Corpuscular Hemoglobin 29.9 pg (26-32)
[2016-08-03 05:55] LABS: ALBUMIN 2.5 g/dL (3.4-5.0); ALKALINE PHOSPHATASE 145 U/L (46-116); ANION GAP 11.2 MEQ/L (5-15); BLOOD UREA NITROGEN 15 mg/dL (9-20); CHLORIDE 107 mEq/L (98-107); Carbon Dioxide 27.3 mEq/L (21-32); Glucose 107 MG/DL (70-110); Potassium 3.6 mEq/L (3.5-5.1); SGOT/AST 13 U/L (15-37); SODIUM 142 mEq/L (136-145); Total Protein 6.4 gm/dL (6.4-8.2)
[2016-08-03 06:05] LABS: SGPT/ALT 6 U/L (12-78)
[2016-08-03] MEDS: ROCEPHIN 1 Gm-D5w 50 ml Bag** 1 G/50 ML IVPB IV SCH (09:59)
[2016-08-03] MEDS: KEPPRA 500 MG PO SCH (10:00)
--- NOTE | 2016-08-03 10:08 | PCM.DS ---
Discharge Summary Date of Admission: 07/31/16 15:09 Admitting Physician: PRERNA MAXWELL Consults: Consults on Case 07/31/16 16:43 Diet Consult [Nutritional Consult] Primary Care Provider: PRERNA MAXWELL Allergies Allergies No Known Drug Allergies Allergy (Verified 07/31/16 13:08) Hospital Summary - Hospital Course Hospital Course: patient was admitted with seizure, was found to have a large subdural hematoma on CT. she was started on keppra, has had no further seizures. 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 she has known lung cancer and is not doing any treatment currently. her code status is DNR and family agrees with conservative management. she has a feeding tube which she is very resistant to using but cannot maintain her weight without it and she is completely unsafe to live at home due to her profound weakness and continued falls now resulting in ICH. - Vitals & Intake/Output Vital Signs: Vital Signs Temperature 97.8 F 08/03/16 07:29 Pulse Rate 70 08/03/16 07:29 Respiratory Rate 18 08/03/16 07:29 Blood Pressure 122/64 08/03/16 07:29 O2 Sat by Pulse Oximetry 97 08/03/16 07:29 Intake & Output: Intake & Output 07/31/16 08/01/16 08/02/16 08/03/16 11:59 11:59 11:59 11:59 Intake Total 8 3263 3771 Output Total 600 350 Balance 1428 2913 3771 Weight 40.993 kg 40.993 kg - Lab Result Diagrams: 08/03/16 04:53 08/03/16 04:53 Lab Results-Last 24 Hrs: Lab Results-Last 24 Hours 08/03/16 08/03/16 Range/Units 04:53 04:53 WBC 5.9 (4.0-10.5) K/mm3 RBC 2.57 L (4.1-5.4) M/mm3 Hgb 7.7 L (12.0-16.0) gm/dl Hct 25.1 L (35-47) % MCV 97.7 (78-100) fl MCH 29.9 (26-32) pg MCHC 30.7 L (32-36) g/dl RDW 14.3 H (11.5-14.0) % Plt Count 176 (150-450) K/mm3 MPV 10.5 H (6-9.5) fl Sodium 142 (136-145) mEq/L Potassium 3.6 (3.5-5.1) mEq/L Chloride 107 (98-107) mEq/L Carbon Dioxide 27.3 (21-32) mEq/L Anion Gap 11.2 (5-15) MEQ/L BUN 15 (9-20) mg/dL Creatinine 0.95 (0.55-1.30) mg/dl Estimated GFR > 60 ML/MIN Glucose 107 (70-110) MG/DL Calcium 8.7 (8.5-10.1) mg/dL Total Bilirubin 0.10 L (0.2-1.0) mg/dL AST 13 L (15-37) U/L ALT 6 L (12-78) U/L Alkaline Phosphatase 145 H (46-116) U/L Serum Total Protein 6.4 (6.4-8.2) gm/dL Albumin 2.5 L (3.4-5.0) g/dL - Procedures and Test Procedures and Tests throughout Hospitalization: Therapy Orders & Screens 07/31/16 16:41 ST Eval & Treat ( Order) .as ordered Comment: Physician Instructions: Reason For Exam: Evaluate: Yes Treat: Yes Reason for Eval: needs bedside swallow, ok to start regular diet if passes Diagnosis: SOB, SEIZURE ACTIVITY, SUBDURAL HEMATOMA 08/02/16 08:19 PT Eval & Treat ( Order) ROUTINE Evaluate: Yes Treat: Yes Reason for Eval:: general weakness, left arm weakness Diagnosis: SEIZURE, SUBDURAL HEMATOMA Discharge Exam General Appearance: cachetic, thin Neurologic Exam: alert, oriented x 3, cooperative, motor deficits (left upper extremity strength 3/5, right 4/5) Skin Exam: normal color, warm, dry Respiratory Exam: normal breath sounds, lungs clear, No respiratory distress Cardiovascular Exam: regular rate/rhythm, normal heart sounds Gastrointestinal/Abdomen Exam: soft, No tenderness, No mass Final Diagnosis/Problem List - Final Discharge Diagnosis/Problem (1) Subdural hematoma Current Visit: Yes Status: Acute (2) Small cell lung cancer Current Visit: Yes Status: Chronic (3) Seizure Current Visit: Yes Status: Acute - Discharge Disposition: [place] TO [facility] Condition: Serious Prescriptions: New Levetiracetam [Keppra 500 mg ] 500 mg PO BID #60 tablet Continue Clonazepam [Klonopin] 1 mg PO HS #30 tablet Follow up with: PRERNA MAXWELL MD [Primary Care Provider] - Forms: Patient Portal Information
[2016-08-03 10:58] VITALS: BP 134/68; PULSE 84; O2SAT 96
== END 2016-08-03 12:30 | DRG 65 ==
LOC: ED 12:47 → MED SURG 15:09 → OBSVTOIN 15:09
PROVIDERS: ADMIT Family Medicine; ATTEND Family Medicine
DX: I62.00 Nontraumatic subdural hemorrhage, unspecified (principal); C34.90 Malignant neoplasm of unspecified part of unspecified bronchus or lung; T17.800A Unspecified foreign body in other parts of respiratory tract causing asphyxiation, initial encounter; R56.9 Unspecified convulsions; Z72.0 Tobacco use
CPT/HCPCS: 36000; 36415; 70450; 71010; 80053; 81000; 82805; 82962; 84484; 85025; 85027; 85610; 85730; 87040; 87086; 93005; 94640; 94760; 96360; 96361; 99285; J0696; J1953; J2543; P9612; A9270-GY